=== PATIENT | male | born 1965 | race Caucasian/White ===

== ENCOUNTER 2017-06-16 09:09 | Inpatient (IN) | payer BC, OTHER ==
[~2017-06-16] VITALS: Ht 182.9 cm; Wt 108.0 kg
--- NOTE | 2017-06-17 09:30 | NUR ---
INTAKE ASSESSMENT Received patient Aox4. Patient is ambulatory and in stable condition. Vital signs stable. Pt reports allergy to alcohol swabs. Patient reports no seizure history. Explained unit protocols and policies. Patient verbalized understanding. Will admit patient upon arrival to third floor.
--- NOTE | 2017-06-17 10:00 | NUR ---
ADMISSION NOTE VITAL SIGNS- BP 164/92 HR 78 O2 97% RR 16 TEMP 98.6 PAIN 3/10 HEIGHT 6'0 WEIGHT 238 ALLERGIES- ALCOHOL SWAB Patient is a 51 year old male admitted to [facility] on 06/17/17 at 0945. Patient is under the care of Dr. Ledesma for opiate and benzo dependence. Patient denies S/I or H/I at this time. Patient denies being hospitalized within the last 30 days. Patient denies chest pain or SOB. Upon assessment, patient's skin is intact. COWS 8 CIWA 8 upon admission. AOx4 and able to answer necessary questions for admission process. Patient is full code and regular diet. Patient denies seizure history. Patient denies having PCP. breathing is even and unlabored. Patient ambulates with steady gait. patient reports treatment in 2002 with 11 year of sobriety after. Patient reports living alone. Hx anxiety depression, ulcerative colitis. Patient does not smoke cigarettes. Dr. Ledesma has been notified and places client under observation. All needs have been met. Patient has been oriented to room, staff, and unit. All safety measures in place per hospital policy. Bed in lowest position and locked. Call light within reach. Will monitor. Substance Abuse- Oxycodone- 240 mg daily for 1 year, last used 20 mg 06/17/17 Ativan- 5 mg daily for 7 years, last used 0.5 mg 06/17/17
[2017-06-17] MEDS ORDERED: BUPRENORPHINE HCL 2 MG TAB.SUBL SL PRN (10:15)
[2017-06-17] MEDS ORDERED: ONDANSETRON ODT 4 MG TAB.RAPDIS SL PRN (10:15)
[2017-06-17] MEDS ORDERED: ONDANSETRON 4 MG/2 ML VIAL IM PRN (10:15)
[2017-06-17] MEDS ORDERED: LOPERAMIDE HCL 2 MG CAPSULE PO PRN ×2 (10:15)
[2017-06-17] MEDS ORDERED: LORAZEPAM 2 MG/1 ML VIAL IM PRN (10:15)
[2017-06-17] MEDS ORDERED: LORAZEPAM 1 MG TABLET PO PRN ×2 (10:15)
[2017-06-17] MEDS ORDERED: DICYCLOMINE HCL 20 MG TABLET PO PRN (10:15)
[2017-06-17] MEDS ORDERED: MIRALAX 17 GM POWD.PACK PO PRN (10:15)
[2017-06-17] MEDS ORDERED: MAG HYDROX/AL HYDROX/SIMETH 30 ML LIQUID UDC PO PRN (10:15)
[2017-06-17] MEDS ORDERED: CYCL5TAB PO (10:30)
[2017-06-17] MEDS ORDERED: FLUO40CA49 PO (10:30)
[2017-06-17] MEDS ORDERED: BENA20TA2 PO (10:30)
[2017-06-17] MEDS ORDERED: CLON0.1T PO (10:30)
[2017-06-17] MEDS ORDERED: LIDO1.8C IJ (10:30)
--- NOTE | 2017-06-17 10:45 | NUR ---
PRN MEDICATIONS 4 MG SUBUTEX GIVEN FOR COWS 12. 1 MG ATIVAN GIVEN FOR CIWA 8. WILL REASSESS
--- NOTE | 2017-06-17 11:45 | NUR ---
PRN REASSESSMENT COWS DECREASED TO 9. CIWA 9. WILL MONITOR.
[2017-06-17 12:00] VITALS: BP 140/85
[2017-06-17 12:01] LABS: *AMPHETAMINE, URINE NEGATIVE (NEGATIVE); *BARBITURATE, URINE NEGATIVE (NEGATIVE); *CANNABINOID, URINE NEGATIVE (NEGATIVE); *COCCAINE, URINE NEGATIVE (NEGATIVE); *OPIATE, URINE POSITIVE (NEGATIVE); *PHENCYCLIDINE SCREEN,URINE NEGATIVE (NEGATIVE)
[2017-06-17 12:49] LABS: ETHANOL < 3 MG/DL (0-0)
[2017-06-17 12:51] LABS: BASOPHILS % (AUTO) 0.2 % (0.0-2.0); EOSINOPHILS # (AUTO) 0.1 K/uL (0.0-0.7); HEMOGLOBIN 13.1 G/DL (14.0-18.0); LYMPHOCYTES # (AUTO) 0.6 K/UL (0.8-4.8); LYMPHOCYTES % (AUTO) 9.9 % (20.5-51.5); MEAN CORPUSCULAR HEMOGLOBIN 25.4 UUG (27.0-31.0); MEAN CORPUSCULAR HGB CONC 33 g/dL (32.0-37.0); MEAN CORPUSCULAR VOLUME 77.6 FL (82.0-92.0); MONOCYTES # (AUTO) 0.5 K/UL (0.1-1.30); MONOCYTES % (AUTO) 7.4 % (0.0-11.0); NEUTROPHILS # (AUTO) 5.1 K/UL (1.8-8.9); NEUTROPHILS % (AUTO) 80.5 % (38.5-71.5); PLATELET COUNT (AUTO) 318 K/UL (150-450); RED BLOOD CELL COUNT(AUTO) 5.16 MIL/UL (4.7-6.1); WHITE BLOOD COUNT (AUTO) 6.3 K/UL (4.0-11.2)
[2017-06-17 12:52] LABS: ALANINE AMINOTRANSFERASE 56 U/L (16-63); ALKALINE PHOSPHATASE 92 U/L (50-136); ASPARTATE AMINOTRANSFERASE 35 U/L (15-37); BILIRUBIN,TOTAL 0.4 mg/dL (0.2-1.0); CARBON DIOXIDE 30 mmol/L (21-32); CHLORIDE 104 mmol/L (98-107); CREATININE 1.1 mg/dL (0.6-1.3); GLUCOSE 105 mg/dL (74-106); MAGNESIUM 2.1 mg/dL (1.8-2.4); POTASSIUM 3.9 mmol/L (3.5-5.1); TOTAL PROTEIN, SERUM 7.6 g/dL (6.4-8.2); UREA NITROGEN, BLOOD 13 mg/dL (7-18)
[2017-06-17] MEDS: BUPRENORPHINE HCL 2 MG TAB.SUBL SL SCH ×2 (14:29→20:56)
[2017-06-17 16:00] VITALS: BP 126/74
[2017-06-17] MEDS: LORAZEPAM 1 MG TABLET PO SCH ×2 (16:50→20:56)
[2017-06-17] MEDS: IBUPROFEN 600 MG TABLET PO PRN (16:54)
--- NOTE | 2017-06-17 16:56 | NUR ---
PRN MEDICATION MOTRIN GIVEN FOR HEADACHE 9/10 ON PAIN SCALE
--- NOTE | 2017-06-17 17:51 | NUR ---
PRN REASSESSMENT PATIENT SLEEPING IN BED WITH RR EVEN AND UNLABORED. NO DISTRESS NOTED. CALL [place] WITHIN REACH AND BED IN LOWEST POSITION
--- NOTE | 2017-06-17 18:46 | NUR ---
END OF SHIFT NOTE ADMITTED PATIENT THIS SHIFT. PATIENT ADMITTED FOR OXYCODONE AND ATIVAN DEPENDENCE. PATIENT STARTED ON 5 DAY ATIVAN TAPER THIS SHIFT AND IS TO START 4 DAY SUBUTEX TAPER TOMORROW 06/18. PATIENT GIVEN PRN ATIVAN, SUBUTEX, MOTRIN DURING SHIFT WITH EFFECTIVENESS. PATIENT HAS BEEN SLEEPING IN BED SINCE ADMISSION. HE REPORTED ANXIETY AND NERVOUSNESS. LAST COWS 9 CIWA 9. ALL SAFETY MEASURES ARE IN PLACE. ALL NEEDS HAVE BEEN MET. WILL ENDORSE TO IT COORDINATOR.
[2017-06-17 20:00] VITALS: BP 141/82
--- NOTE | 2017-06-17 20:00 | NUR ---
START OF SHIFT NOTE PATIENT IN ROOM, RESTING. UPON GREETING, PATIENT STATES HE'S ANXIOUS, SWEATING, C/O HEADACHE 02/12, NOTED PILOERECTION OF SKIN, FINE TREMORS AND YAWNING. RECEIVED REPORT FROM DAY SHIFT NURSE. PATIENT IS A 51 YEAR OLD MALE, ADMITTED FOR OPIOID AND ATIVAN DEPENDENCE. PATIENT IS ON 5 DAY ATIVAN AND 4 DAY SUBUTEX TAPER. UPON ADMISSION, PATIENT REPORTS USING OXYCODONE 240 MG FOR A YEAR AND ATIVAN 5 MG FOR 7 YEARS. PATIENT REPORTS PMH OF ANXIETY , DEPRESSION AND ULCERATIVE COLITIS. NO SEIZURE HISTORY. PATIENT WAS GIVEN PRN SUBUTEX , ATIVAN AND MOTRIN . LAST COWS 9 AND CIWA 9. SKIN INTACT. PATIENT IS ON FALL PRECAUTION. SAFETY MEASURES IN PLACE. CALL LIGHT IN REACH. WILL CONTINUE TO MONITOR
[2017-06-17] MEDS: ACETAMINOPHEN 325 MG TABLET PO PRN (20:56)
--- NOTE | 2017-06-17 20:56 | NUR ---
PRN TYLENOL ADMINISTRATION PATIENT C/O HEADACHE 02/12 .PRN TYLENOL GIVEN. WILL MONITOR FOR EFFECTIVENESS
--- NOTE | 2017-06-17 21:56 | NUR ---
PRN TYLENOL RE-ASSESSMENT PATIENT STATES TYLENOL HELPFUL. PAIN LEVEL 2/10 AT THIS TIME. WILL CONTINUE TO MONITOR
[2017-06-18] VITALS: BP 135/84
[2017-06-18] MEDS: IBUPROFEN 600 MG TABLET PO PRN ×2 (00:58→10:57)
[2017-06-18] MEDS: diphenhydrAMINE 50 MG CAPSULE PO PRN (00:58)
--- NOTE | 2017-06-18 00:58 | NUR ---
PRN MOTRIN AND BENADRYL ADMINISTRATION PATIENT C/O HEADACHE 02/12 AND REQUESTS FOR SLEEP AID. PRN MOTRIN AND BENADRYL GIVEN. WILL MONITOR FOR EFFECTIVENESS
--- NOTE | 2017-06-18 01:58 | NUR ---
MISSAELN SALLIE AND NAHOMI PATIENT ASLEEP AT THIS TIME. NO FACIAL GRIMACING. WILL CONTINUE TO MONITOR
--- NOTE | 2017-06-18 04:00 | NUR ---
COWS/CIWA/VS PATIENT ASLEEP AT TIME TIME. COWS/CIWA UNABLE TO ASSESS. RESPIRATION EVEN AND UNLABORED. WILL CONTINUE TO MONITOR.
--- NOTE | 2017-06-18 07:11 | NUR ---
END OF SHIFT NOTE MONITORED PATIENT THROUGHOUT SHIFT. PATIENT IS A 51 YEAR OLD MALE, ADMITTED FOR OPIOID AND ATIVAN DEPENDENCE. PATIENT IS ON 5 DAY ATIVAN AND 4 DAY SUBUTEX TAPER. UPON ADMISSION, PATIENT REPORTS USING OXYCODONE 240 MG FOR A YEAR AND ATIVAN 5 MG FOR 7 YEARS. PATIENT REPORTS PMH OF ANXIETY , DEPRESSION AND ULCERATIVE COLITIS. NO SEIZURE HISTORY. PATIENT WAS GIVEN PRN MOTRIN , TYLENOL AND BENADRYL. SKIN INTACT. PATIENT IS ON FALL PRECAUTION. SAFETY MEASURES IN PLACE. CALL LIGHT IN REACH. WILL CONTINUE TO MONITOR . SLEPT 9 HOURS. FLUID INTAKE 855 ML. VOIDED X 2. BM X 1.
[2017-06-18 08:00] VITALS: BP 149/77
--- NOTE | 2017-06-18 08:00 | NUR ---
START OF SHIFT NOTE Received report from night nurse, 51 year old male admitted for Opioid/ Ativan dependance. Pt cont with Subutex/Ativan taper. Per night nurse pt received PRN Tylenol/Motrin/Benadryl noted to be effective, Last COWS-4, CIWA-4, Slept for 9 hours. Received pt alert awake oriented x4 in stable condition. Breathing normal no SOB noted, Skin warm and dry to touch. Pt educated with plan of the day and medication regimen with good verbal understanding. All safety measures in place, Call light within reach. Will cont to monitor.
[2017-06-18] MEDS ORDERED: TUBERCULIN,PURIF.PROT.DERIV. 5 TU/0.1 ML TEST ID ONE (09:00)
[2017-06-18] MEDS: LORAZEPAM 1 MG TABLET PO SCH ×4 (09:07→21:55)
[2017-06-18] MEDS: MULTIVITAMINS,THERAPEUTIC TABLET PO SCH (09:07)
[2017-06-18] MEDS: BUPRENORPHINE HCL 2 MG TAB.SUBL SL SCH ×3 (09:08→21:55)
[2017-06-18] MEDS: PATIENT MAY USE OWN MED- MD OK PO SCH (09:09)
[2017-06-18 10:11] LABS: HEPATITIS B SURFACE AG Negative (Negative)
--- NOTE | 2017-06-18 10:57 | NUR ---
PRN MOTRIN Pt c/o of headache 02/12. Pt medicated with PRN Motrin 600mg Po as ordered. Will cont to monitor and reassess.
--- NOTE | 2017-06-18 11:57 | NUR ---
REASSESSMENT upon reassessment pt reported medication effective headache decreased to 1/10. Will cont to monitor.
[2017-06-18 12:00] VITALS: BP 135/68
[2017-06-18] MEDS: FLUOXETINE HCL 20 MG CAPSULE PO SCH (12:09)
[2017-06-18] MEDS: GABAPENTIN 300 MG CAPSULE PO SCH ×2 (14:08→21:55)
[2017-06-18] MEDS: BACLOFEN 10 MG TABLET PO SCH ×2 (14:08→21:55)
[2017-06-18 16:00] VITALS: BP 127/75
[2017-06-18] MEDS: CLONIDINE HCL 0.1 MG TABLET PO PRN (16:11)
--- NOTE | 2017-06-18 16:11 | NUR ---
PRN CLONIDINE Pt reported chills, sweats. PRN Clonidine 0.1mg Po administered as ordered. Will cont to monitor and reassess.
--- NOTE | 2017-06-18 17:11 | NUR ---
REASSESSMENT Upon reassessment pt reported medication effective Chills and sweats subside.
--- NOTE | 2017-06-18 19:19 | NUR ---
END OF SHIFT NOTE Pt cont with Subutex and Ativan taper tolerated well. During shift pt presented with headache/Chills, sweats. Pt given PRN Clonidine/Motrin. Last CIWA-4, COWS-4. Vital signs remained WNL. Pt able to consumed all his meals well. Encourage Po fluids as tolerated. Pt remained compliant with plan of care. Pt rested in bed most of shift and isolated self from peers. He did not attend groups and activities. All needs attended. Safety measures in place, Call light within reach. Pt endorsed to night nurse in stable condition.
[2017-06-18 20:00] VITALS: BP 133/78
--- NOTE | 2017-06-18 20:00 | NUR ---
Start of Shift Patient is a 51-year old, male, admitted for Opioid/Ativan dependence. Patient placed on 5-day Ativan taper-started on 06/17/17 and 4-day Subutex taper-started on 06/18/17, both tapers tolerated well. Pt reports allergy to alcohol swab, is Full Code and on Regular Diet. Pt is AAOx4 and with slight anxiety noted. No SOB observed. Pt is ambulatory with steady gait. No skin issues. Pt is stable. Fall, universal and safety prec in place. Call light within reach. Latest COWS=3, CIWA=3. Will continue to monitor.
[2017-06-19] VITALS: BP 130/71
[2017-06-19 04:00] VITALS: BP 133/72
[2017-06-19] MEDS: METHOCARBAMOL 750 MG TABLET PO PRN (05:52)
--- NOTE | 2017-06-19 05:54 | NUR ---
RN note PRN Robaxin Pt c/o generalized muscle pain, more focused on the lower back=08/14 per pt. Administered Robaxin 750 mg PO. Will reassess.
--- NOTE | 2017-06-19 07:00 | NUR ---
RN note reassess Pt verbalized pain level decreased to 4-5/10. Will continue to monitor.
--- NOTE | 2017-06-19 07:21 | NUR ---
End of Shift Patient is a 51-year old, male, admitted for Opioid/Ativan dependence. Patient placed on 5-day Ativan taper-started on 06/17/17 and 4-day Subutex taper-started on 06/18/17, both tapers tolerated well. Pt reports allergy to alcohol swab, is Full Code and on Regular Diet. Pt is AAOx4 and with slight anxiety noted. No SOB observed. Pt is ambulatory with steady gait. No skin issues. Pt is stable. Fall, universal and safety prec in place. Call light within reach. Latest COWS=2, CIWA=3, slept for 7 hours . No suicidal ideation nor homicidal ideation. Endorsed to AM shift nurse for continuity of care.
[2017-06-19 08:00] VITALS: BP 156/83
--- NOTE | 2017-06-19 08:06 | NUR ---
START OF SHIFT NOTE Received report from night nurse, 51 year old male admitted for Opioid/ Ativan dependance. Pt cont with Subutex/Ativan taper. Per night nurse pt received PRN Robaxin noted to be effective, Last COWS-4, CIWA-4, Slept for 7 hours. Received pt alert awake oriented x4 in stable condition. Breathing normal no SOB noted, Skin warm and dry to touch. Pt educated with plan of the day and medication regimen with good verbal understanding. All safety measures in place, Call light within reach. Will cont to monitor.
[2017-06-19] MEDS: BACLOFEN 10 MG TABLET PO SCH (08:57)
[2017-06-19] MEDS: FLUOXETINE HCL 20 MG CAPSULE PO SCH (08:57)
[2017-06-19] MEDS: MULTIVITAMINS,THERAPEUTIC TABLET PO SCH (08:57)
[2017-06-19] MEDS: GABAPENTIN 300 MG CAPSULE PO SCH ×3 (08:57→20:06)
[2017-06-19] MEDS: LORAZEPAM 1 MG TABLET PO SCH ×3 (08:58→20:05)
[2017-06-19] MEDS ORDERED: BUPRENORPHINE HCL 2 MG TAB.SUBL SL SCH (09:00)
[2017-06-19] MEDS: PATIENT MAY USE OWN MED- MD OK PO SCH (09:02)
[2017-06-19] MEDS ORDERED: METHYL SALICYLATE/MENTHOL CREAM 28 GM TUBE TOP PRN (11:45)
[2017-06-19 12:00] VITALS: BP 119/65
[2017-06-19] MEDS: KETOROLAC TROMETHAMINE 30 MG INJ IM PRN (13:11)
--- NOTE | 2017-06-19 13:11 | NUR ---
PRN TORADOL Pt c/o of lower back pain 06/14. Pt provided with non pharmacological intervention with no relief. Administered PRN Toradol 30mg IM as ordered. Will cont to monitor and reassess.
--- NOTE | 2017-06-19 13:41 | NUR ---
REASSESSMENT Pt reported medication effective pain level decreased to 2/10.
[2017-06-19] MEDS: BUPRENORPHINE HCL 2 MG TAB.SUBL SL SCH ×2 (14:58→20:05)
[2017-06-19] MEDS: BACLOFEN 20 MG TABLET PO SCH ×2 (14:58→20:06)
[2017-06-19] MEDS ORDERED: BACLOFEN 10 MG TABLET PO SCH (15:00)
[2017-06-19 16:00] VITALS: BP 121/60
--- NOTE | 2017-06-19 19:09 | NUR ---
START OF SHIFT NOTE: Patient endorsed by day shift nurse in stable condition. Report received. Patient is a 51 year old male admitted to [facility] on 06/17/2017 for medically supervised withdrawal from Oxycodone and Ativan, continue 5 Day Ativan Taper and 4 Day Subutex Taper with tolerated well without ASE. Patient remained compliant with treatment, medications and diet regime. Patient reports Alcohol Swabs. Patient is on Full Code, Regular Diet, Fall and Seizures Precautions. Upon endorsement, patient is in the room. Assessment done. Patient is alert and oriented x4. Speech is clear and soft. COWS 7, CIWA 7. Patient presented with mild anxiety, agitation, nervousness, diaphoresis, restlessness, body aches, insomnia ,fatigue, and yawning. Patient denies SI/HI. Respirations unlabored and even. Patient denies SOB and chest pain. Lungs Sounds are clear bilaterally. Bowel Sounds active in all x4 quadrants. PERRLA, brisk capillary refill, honeycomb decapper equal and strong. Skin is intact, warm and dry to touch. Encourage fluids as tolerated. Encourage to attend activities groups. All needs met. Safety measures on place. Call light within reach, bed in lowest position and locked, padded rails up bilaterally rails up bilaterally. Will continue to monitor closely. Addendum: 06/20/17 at 0245 by HIPOLITO TEMPLE RN Patient reports Allergy to Alcohol Swabs.
--- NOTE | 2017-06-19 19:09 | NUR ---
END OF SHIFT NOTE Pt is alert oriented x4.Pt cont with Subutex and Ativan taper tolerated well. During shift pt presented with lower back pain 8/10. Pt given PRN Toradol 30mg Im administered noted to be effective pain decreased to 2/10. Last CIWA-3, COWS-3. Vital signs remained WNL. Pt able to consumed all his meals well. Encourage Po fluids as tolerated. Pt remained compliant with plan of care. Pt rested in bed most of shift and isolated self from peers. He did not attend groups and activities. All needs attended. Safety measures in place, Call light within reach. Pt endorsed to night nurse in stable condition.
[2017-06-19 20:00] VITALS: BP 158/93
[2017-06-19] MEDS: CLONIDINE HCL 0.1 MG TABLET PO PRN (20:05)
--- NOTE | 2017-06-19 20:05 | NUR ---
PRN CLONIDINE 0.1 MG 1 TAB PO ADMINISTRATION. PRN Clonidine 0.1 mg 1 tab PO administrated for BP 158/99 with full glass of water as ordered. Patient tolerated well. All needs met. Safety measures on place. Call light within reach, bed in lowest position and locked, padded rails up bilaterally rails up bilaterally. Will continue to monitor closely.
--- NOTE | 2017-06-19 21:05 | NUR ---
RE-ASSESSMENT Patient BP 139/78. PRN Clonidine PO was effective. All needs met. Safety measures on place. Call light within reach, bed in lowest position and locked, padded rails up bilaterally rails up bilaterally. Will continue to monitor closely.
[2017-06-20] VITALS: BP 137/75
[2017-06-20] MEDS: diphenhydrAMINE 50 MG CAPSULE PO PRN (00:14)
--- NOTE | 2017-06-20 00:14 | NUR ---
PRN BENADRYL 50 MG 1 CAP PO ADMINISTRATION. Patient c/o insomnia and asked aid. Patient was assessed. VS WNL. Patient denies SI/HI. PRN Benadryl PO discussed with patient, and patient's educated for actions, side effects, and adverse reactions of Benadryl. Patient returned knowledge back by verbalized understanding. PRN Benadryl 50 mg 1 cap PO administrated with full glass of water as ordered. Patient tolerated well. All needs met. Safety measures on place. Call light within reach, bed in lowest position and locked, padded rails up bilaterally rails up bilaterally. Will continue to monitor closely.
--- NOTE | 2017-06-20 01:14 | NUR ---
RE-ASSESSMENT Patient is sleeping. Respirations even and unlabored. RR: 15. PRN Benadryl PO were effective. All needs met. Safety measures on place. Call light within reach, bed in lowest position and locked, padded rails up bilaterally rails up bilaterally. Will continue to monitor closely.
[2017-06-20 04:00] VITALS: BP 137/69
--- NOTE | 2017-06-20 06:59 | NUR ---
END OF SHIFT NOTE: Patient endorsed to day shift nurse in stable condition. Report given. Patient is a 51 year old male admitted to [facility] on 06/17/2017 for medically supervised withdrawal from Oxycodone and Ativan, continue 5 Day Ativan Taper and 4 Day Subutex Taper with tolerated well without ASE. Patient remained compliant with treatment, medications and diet regime. Patient reports Allergy to Alcohol Swabs. Patient is on Full Code, Regular Diet, Fall and Seizures Precautions. Patient denies Seizures History. Last COWS 6 at 0400, CIWA 4 at 0400. Patient presented with mild anxiety, agitation, nervousness, diaphoresis, restlessness, body aches, insomnia ,fatigue, and yawning. Patient denies SI/HI. Respirations unlabored and even. Patient denies SOB and chest pain. Skin is intact, warm and dry to touch. PRN Benadryl 50 mg 1 cap PO for insomnia, and PRN Vistaril 50 mg 2 cap PO for anxiety administrated as ordered, and were effective. Patient slept 7 hours 45 minutes,, intake 355 ml, voided x1. Encourage fluids as tolerated. Encourage to attend activities groups. All needs met. Safety measures on place. Call light within reach, bed in lowest position and locked, padded rails up bilaterally.
[2017-06-20 08:40] VITALS: BP 109/56
[2017-06-20] MEDS ORDERED: LORAZEPAM 1 MG TABLET PO SCH (09:00)
[2017-06-20] MEDS: PATIENT MAY USE OWN MED- MD OK PO SCH (09:00)
[2017-06-20] MEDS: LORAZEPAM 1 MG TABLET PO SCH ×2 (09:54→20:52)
[2017-06-20] MEDS: BACLOFEN 20 MG TABLET PO SCH ×3 (09:54→20:52)
[2017-06-20] MEDS: MULTIVITAMINS,THERAPEUTIC TABLET PO SCH (09:54)
[2017-06-20] MEDS: GABAPENTIN 300 MG CAPSULE PO SCH ×3 (09:54→20:53)
[2017-06-20] MEDS: BUPRENORPHINE HCL 2 MG TAB.SUBL SL SCH ×3 (09:55→20:52)
[2017-06-20] MEDS: FLUOXETINE HCL 20 MG CAPSULE PO SCH (11:25)
[2017-06-20 12:46] VITALS: BP 142/75
[2017-06-20 17:18] VITALS: BP 129/86
--- NOTE | 2017-06-20 18:54 | NUR ---
End of Shift Field Supervisor [employer] provided report on 51 year old male admitted on 06/17/17 for Oxycodone and Ativan detoxification, with no further comments, questions or concerns voiced. Pt has NKA, is a full code and eats a regular diet. Pt reports PMH of anxiety, depression, and ulcerative colitis. Pt currently on a 5 day Ativan and 5 day Subutex taper. Pt has a depressed mood with flat affect, calm and cooperative and able to make needs known. Pt has been somnolent all day and has been isolating in room and to self. Pt is experiencing moderate withdrawal symptoms, but has been able to rest thru most of the discomfort. Bed in low position, with wheels locked, side rails up x2 and call light within reach.
[2017-06-20 20:00] VITALS: BP 132/79
--- NOTE | 2017-06-20 20:00 | NUR ---
START OF SHIFT NOTE PATIENT ALERT AND ORIENTED X 4. RESPIRATION EVEN AND UNLABORED. PATIENT REPORTS ANXIETY, NO N/V, SWEATING, BETTER APPETITE, DID NOT ATTENDED GROUPS , WILL TRY TOMORROW HE STATES, BOWEL MOVEMENT LOOSE (HISTORY OF ULCERATIVE COLITIS), REFUSED IMODIUM. ENCOURAGED FLUIDS. PATIENT C/O BACK PAIN 06/14. RECEIVED REPORT FROM DAY SHIFT NURSE. PATIENT IS A 51 YEAR OLD MALE ADMITTED FOR SUBSTANCE DEPENDENCE. PATIENT IS ON 5 DAY ATIVAN AND 4 DAY SUBUTEX TAPER. PATIENT IS ALLERGIC TO ALCOHOL SWABS. PATIENT REPORTS PMH OF ANXIETY, DEPRESSION AND ULCERATIVE COLITIS. PATIENT S DRUG OF CHOICE ARE OXYCODONE AND ATIVAN. PATIENT DID NOT REQUIRE PRN MEDICATION. LAST COWS 6 AD CIWA 4. ON FALL/SEIZURE PRECAUTION. SAFETY MEASURES IN PLACE. CALL LIGHT IN REACH. WILL CONTINUE TO MONITOR.
[2017-06-20] MEDS: METHOCARBAMOL 750 MG TABLET PO PRN (20:52)
--- NOTE | 2017-06-20 20:52 | NUR ---
PRN ROBAXIN ADMINISTRATION PATIENT C/O BACK PAIN 06/14. PRN ROBAXIN GIVEN. WILL MONITOR FOR EFFECTIVENESS
--- NOTE | 2017-06-20 21:52 | NUR ---
PRN ROBAXIN RE-ASSESSMENT PATIENT STATES ROBAXIN IS HELPFUL. PAIN LEVEL 3/10, TOLERABLE . WILL CONTINUE TO MONITOR
[2017-06-21] VITALS (7 sets, daily range): BP systolic 133–147; BP diastolic 73–90
[2017-06-21] MEDS: METHOCARBAMOL 750 MG TABLET PO PRN ×2 (05:02→17:05)
--- NOTE | 2017-06-21 05:02 | NUR ---
PRN ROBAXIN ADMINISTRATION PATIENT C/O GENERALIZED BODY ACHES 04/14. PRN ROBAXIN GIVEN. WILL CONTINUE TO MONITOR
--- NOTE | 2017-06-21 06:02 | NUR ---
HARDEEP JASSO RE-ASSESSMENT PATIENT IN BED WITH EYES CLOSED. NO FACIAL GRIMACING. RESPIRATION EVEN AND UNLABORED. WILL CONTINUE TO MONITOR
--- NOTE | 2017-06-21 07:32 | NUR ---
END OF SHIFT NOTE PATIENT REMAIN ALERT AND ORIENTED X 4. RESPIRATION EVEN AND UNLABORED. PATIENT REPORTED ANXIETY, NO N/V, SWEATING, BETTER APPETITE, DID NOT ATTENDED GROUPS , WILL TRY TOMORROW HE STATES, BOWEL MOVEMENT LOOSE (HISTORY OF ULCERATIVE COLITIS), REFUSED IMODIUM. ENCOURAGED FLUIDS. PATIENT C/O BACK PAIN 06/14. RECEIVED REPORT FROM DAY SHIFT NURSE. PATIENT IS A 51 YEAR OLD MALE ADMITTED FOR SUBSTANCE DEPENDENCE. PATIENT IS ON 5 DAY ATIVAN AND 4 DAY SUBUTEX TAPER, TOLERATED WELL. NO ADVERSE REACTION . PATIENT IS ALLERGIC TO ALCOHOL SWABS. PATIENT REPORTS PMH OF ANXIETY, DEPRESSION AND ULCERATIVE COLITIS. PATIENT S DRUG OF CHOICE ARE OXYCODONE AND ATIVAN. PATIENT WAS GIVEN PRN MOTRIN X 2. . ON FALL/SEIZURE PRECAUTION. SAFETY MEASURES IN PLACE. CALL LIGHT IN REACH. WILL CONTINUE TO MONITOR. SLEPT 2 HOURS. FLUID INTAKE 550 ML. VOIDED X 2 . NO BM. LAST COWS 4 AND CIWA 3 .
--- NOTE | 2017-06-21 07:35 | NUR ---
Start Of Shift Patient Received from retail shift manager nurse. Patient is a 51 year old male admitted on 06/17/17 for Oxycodone and Ativan withdrawals/dependence pt is under the care of Dr. Ledesma. Pt is full code regular diet on fall and seizure precautions reports allergies to alcohol swabs. Patient is currently receiving a 5 day Ativan and a 4 day Subutex taper tolerating well. Pt reports PMH of anxiety, depression, and ulcerative colitis. Treatment plan tolerated well by the patient as evidenced by pts last CIWA score of 3 and COWS score of 4 which was taken at 0400. Pt received PRN Robaxin x2 last night for which was effective per retail shift manager nurse. Fluids encouraged to facilitate the detox process. Pt is currently in his room laying in bed watching TV. All safety measures in place per hospital policy. Bed in lowest position, side rails up x2, call-light within reach. Will continue to monitor and provide support.
[2017-06-21] MEDS ORDERED: LORAZEPAM 1 MG TABLET PO SCH ×2 (09:00)
[2017-06-21] MEDS: PATIENT MAY USE OWN MED- MD OK PO SCH ×2 (09:00→09:32)
[2017-06-21] MEDS ORDERED: BUPRENORPHINE HCL 2 MG TAB.SUBL SL SCH ×2 (09:00)
[2017-06-21] MEDS: FLUOXETINE HCL 20 MG CAPSULE PO SCH (09:22)
[2017-06-21] MEDS: GABAPENTIN 300 MG CAPSULE PO SCH ×2 (09:22→21:10)
[2017-06-21] MEDS: MULTIVITAMINS,THERAPEUTIC TABLET PO SCH (09:23)
[2017-06-21] MEDS: BACLOFEN 20 MG TABLET PO SCH ×2 (09:23→21:10)
[2017-06-21] MEDS ORDERED: NAPROXEN 500 MG TABLET PO PRN (15:00)
[2017-06-21] MEDS: LIDOCAINE 5% PATCH TD SCH (15:10)
[2017-06-21] MEDS: CLONIDINE HCL 0.1 MG TABLET PO PRN (17:05)
--- NOTE | 2017-06-21 17:15 | NUR ---
PRN MEDICATION Pt c/o Anxiety presented with agitation and restlessness pt also complained of generalized pain rating it 5/10 requested something for relief, non-pharmacological techniques interventions provided x3 and were not effective. PRN Clonidine 0.1mg Naproxen 500mg, and Robaxin 750mg administered PO, educated pt about s/e of medication and when to contact nurse. all needs met, all safety measures in place, will continue to monitor.
--- NOTE | 2017-06-21 18:15 | NUR ---
PRN REASSESSMENT Medication effective pt reported a decrease in pain to 1/10 and verbalized a decrease in anxiety stating "I feel much better now the medication really helped, thanks" will continue to monitor
--- NOTE | 2017-06-21 18:52 | NUR ---
End Of Shift Report given to overnight houseperson, Patient is a 51 year old male admitted on 06/17/17 for Oxycodone and Ativan withdrawals/dependence pt is under the care of Dr. Ledesma. Pt is full code regular diet on fall and seizure precautions reports allergies to alcohol swabs. Patient continues receiving 5 day Ativan and 4 day Subutex taper tolerating well. VS monitored closely q 4 hours. Withdrawal symptoms were closely monitored. Initial COWS 5 CIWA 4. Patient encouraged adequate PO fluid intake as tolerated. Patient presented with tremors and anxiety during the day. Last COWS 4 CIWA 5. Per patient, Subutex and Ativan have been helping him with his withdrawal symptoms. Pt ate all of his meals. Pt received PRN Naproxen, Robaxin and Clonidine during day shift, all medications effective. Patient encouraged to attend group therapies/sessions to learn new coping skills to recent relapse, patient denies SI/HI. Participated in group and therapy sessions. All needs met and attended
--- NOTE | 2017-06-21 20:00 | NUR ---
START OF SHIFT NOTE RECEIVED REPORT FROM DAY SHIFT NURSE. PATIENT IS A 51 YEAR OLD MALE ADMITTED FOR OPIOID AND BENZO DEPENDENCE. PATIENT COMPLETED ATIVAN AND SUBUTEX TAPER. PATIENT IS MEDICALLY CLEARED TO BE DISCHARGE TOMORROW. PATIENT WAS GIVEN PRN NAPROXEN, CLONIDINE AND ROBAXIN. LAST COWS 4 AND CIWA 5. ON FALL PRECAUTION. SAFETY MEASURES IN PLACE. CALL LIGHT IN REACH. WILL CONTINUE TO MONITOR.
[2017-06-21] MEDS ORDERED: GABAPENTIN 300 MG CAPSULE PO SCH (21:00)
[2017-06-21] MEDS: CLONIDINE HCL 0.1 MG TABLET PO SCH (21:10)
[2017-06-21] MEDS: diphenhydrAMINE 50 MG CAPSULE PO PRN (21:10)
--- NOTE | 2017-06-21 21:10 | NUR ---
PRN BENADRYL ADMINISTRATION PATIENT REQUESTS FOR SLEEP AID. PRN BENADRYL GIVEN. WILL MONITOR FOR EFFECTIVENESS
[2017-06-21] MEDS: NAPROXEN 500 MG TABLET PO SCH (21:11)
[2017-06-21] MEDS ORDERED: BACL20TA PO (21:49)
[2017-06-21] MEDS ORDERED: LIDO30AD10 TD (21:49)
[2017-06-21] MEDS ORDERED: CLON0.1T14 PO (21:49)
[2017-06-21] MEDS ORDERED: DICY20TA28 PO (21:49)
[2017-06-21] MEDS ORDERED: GABA-534 PO ×2 (21:49)
[2017-06-21] MEDS ORDERED: DIPH50CA37 PO (21:49)
[2017-06-21] MEDS ORDERED: FLUO-120 PO (21:49)
[2017-06-21] MEDS ORDERED: NAPR500T3 PO (21:49)
[2017-06-22] VITALS (7 sets, daily range): BP systolic 118–156; BP diastolic 66–92
--- NOTE | 2017-06-22 07:06 | NUR ---
END OF SHIFT NOTE PATIENT IS A 51 YEAR OLD MALE ADMITTED FOR OPIOID AND BENZO DEPENDENCE. PATIENT COMPLETED ATIVAN AND SUBUTEX TAPER. PATIENT IS MEDICALLY CLEARED TO BE DISCHARGE TODAY . PATIENT WAS EMOTIONAL BEGINNING OF SHIFT REGARDING HIS DISCHARGE. PATIENT WAS GIVEN POSITIVE ENCOURAGEMENT AND REDIRECTION PROVIDED. PATIENT WAS GIVEN PRN BENADRYL FOR SLEEP. PATIENT COMPLIANT WITH MEDICATION. ON FALL PRECAUTION. SAFETY MEASURES IN PLACE. CALL LIGHT IN REACH. WILL CONTINUE TO MONITOR. SLEPT 10 HOURS. FLUID INTAKE 600 ML. VOIDED X 1 .NO BM. LAST COWS 1 AND CIWA 1 .
--- NOTE | 2017-06-22 07:30 | NUR ---
START OF SHIFT NOTE RECEIVED PT AOX4. PT SCHEDULED FOR DISCHARGE THIS SHIFT. PT COMPLETED TAPER MEDICATIONS. PRN BENADRYL GIVEN PER NIGHT NURSE. PT SLEPT 10 HOURS. PT STATES READINESS FOR DISCHARGE. VITAL SIGNS STABLE. COWS 1 CIWA 1 PER NIGHT NURSE. WILL DISCHARGE PT THIS SHIFT ORDERED.
[2017-06-22] MEDS: NAPROXEN 500 MG TABLET PO SCH ×2 (08:37→21:00)
[2017-06-22] MEDS: MULTIVITAMINS,THERAPEUTIC TABLET PO SCH (08:37)
[2017-06-22] MEDS: PATIENT MAY USE OWN MED- MD OK PO SCH (08:37)
[2017-06-22] MEDS: LIDOCAINE 5% PATCH TD SCH (08:37)
[2017-06-22] MEDS: GABAPENTIN 300 MG CAPSULE PO SCH ×3 (08:37→21:19)
[2017-06-22] MEDS: FLUOXETINE HCL 20 MG CAPSULE PO SCH (08:37)
[2017-06-22] MEDS: BACLOFEN 20 MG TABLET PO SCH ×3 (08:38→21:00)
[2017-06-22] MEDS: CLONIDINE HCL 0.1 MG TABLET PO SCH ×3 (08:38→21:16)
[2017-06-22] MEDS: ACETAMINOPHEN 325 MG TABLET PO PRN (10:24)
--- NOTE | 2017-06-22 10:24 | NUR ---
PRN MEDICATION TYLENOL GIVEN FOR HEADACHE 07/15 WILL MONITOR
--- NOTE | 2017-06-22 11:15 | NUR ---
PRN REASSESSMENT PATIENT REPORTS NO RELIEF IN SYMPTOMS. PAIN STILL 9/10
--- NOTE | 2017-06-22 11:34 | NUR ---
PRN MEDICATIONS IM TORADOL GIVEN PER DR CASAS. PT REPORTS CONSISTENT PAIN 07/15
[2017-06-22] MEDS: KETOROLAC TROMETHAMINE 30 MG INJ IM PRN (11:35)
[2017-06-22 11:37] LABS: *AMPHETAMINE, URINE NEGATIVE (NEGATIVE); *BARBITURATE, URINE NEGATIVE (NEGATIVE)
[2017-06-22 11:38] LABS: *CANNABINOID, URINE NEGATIVE (NEGATIVE); *COCCAINE, URINE NEGATIVE (NEGATIVE); *OPIATE, URINE NEGATIVE (NEGATIVE); *PHENCYCLIDINE SCREEN,URINE NEGATIVE (NEGATIVE)
--- NOTE | 2017-06-22 12:42 | NUR ---
Patient is no longer discharging this shift. patient is not medically cleared per MD. will monitor closely.
[2017-06-22] MEDS ORDERED: BUPRENORPHINE HCL 2 MG TAB.SUBL SL ONE (13:00)
[2017-06-22] MEDS ORDERED: LORAZEPAM 1 MG TABLET PO ONE (13:00)
--- NOTE | 2017-06-22 13:56 | NUR ---
TRANSFER OF CARE TO ADRIAN LUONG
--- NOTE | 2017-06-22 14:00 | NUR ---
RESUMED CARE Resumed care of client, all pertinent information provided. Pt is resting in bed at this time.
--- NOTE | 2017-06-22 14:22 | NUR ---
TAPER MODIFIED Taper was modified to prevent acute discomfort of withdrawals as followed:Ativan 8/18 - 1 mg PO q6h x 3 doses 8 - 1 mg PO qAM 0900 x 1 dose; monitor CIWA q4h; notify MD if CIWA >8 20 - OFF Subutex: 06/22 - 4 mg SL x 1 now, 2 mg SL q6h x 2 doses 06/23 - 2 mg SL qAM 0900 x 1 dose; monitor COWS q4h; notify MD if COWS >12 20 - OFF
--- NOTE | 2017-06-22 15:00 | NUR ---
REFUSAL OF 1500 MEDS Pt refuses Clonidine, Gabapentin, and Baclofen and states "they don't help me, only Ativan and Subutex help me. I don't want to take any medications that do not help me." Pt education provided on importance of med compliance.
[2017-06-22] MEDS: LORAZEPAM 1 MG TABLET PO SCH ×2 (17:20→21:15)
[2017-06-22] MEDS: BUPRENORPHINE HCL 2 MG TAB.SUBL SL SCH ×2 (17:20→21:16)
--- NOTE | 2017-06-22 19:07 | NUR ---
END OF SHIFT Endorsed to night nurse. 51 year old male patient admitted for opiate and benzo withdrawals. Pt was not medically cleared for discharged and taper was modified. Pt remains complaint with ordered medications to increase safety and comfort. PRN Toradol and Motrin were administered and ineffective per patient. Pt refused 1500 medications. Most recent COWS 7 and CIWA 7. Pt denies N/V/D at this time. Pt encouraged to attend groups. Pt is resting in bed at this time. Safety measures in place, night nurse to continue monitoring.
--- NOTE | 2017-06-22 20:00 | NUR ---
START OF SHIFT NOTE RECEIVED REPORT FROM DAY SHIFT NURSE. PATIENT IS A 51 YEAR OLD MALE ADMITTED FOR OPIOID DEPENDENCE. PATIENT'S ATIVAN AND SUBUTEX TAPER WAS EXTENDED. PATIENT WAS PLACED ON MODIFIED 2 DAYS ATIVAN AND SUBUTEX TAPER. PATIENT IS ALLERGIC TO ALCOHOL SWABS. PATIENT LAST COWS 7 AND CIWA 7. PATIENT REFUSED 1500 CLONIDINE, BACLOFEN AND GABAPENTIN . PRN TORADOL AND MOTRIN GIVEN. PATIENT EMOTIONAL DURING THE DAY. ON FALL PRECAUTION. SAFETY MEASURES IN PLACE. CALL LIGHT IN REACH. WILL CONTINUE TO MONITOR.
--- NOTE | 2017-06-22 21:00 | NUR ---
BACLOFEN/NAPROSYN REFUSED PATIENT REFUSED BACLOFEN AND NAPROSYN REFUSED.PATIENT STATES " I DON'T NEED THAT I'M NOT IN PAIN . EXPLAINED RISKS BENEFITS . WILL CONTINUE TO MONITOR.
[2017-06-23] VITALS: BP 111/56
--- NOTE | 2017-06-23 03:09 | NUR ---
PRN BENADRYL ADMINISTRATION PATIENT REQUESTS FOR SLEEP AID. PRN MEDICATION GIVEN. WILL MONITOR FOR EFFECTIVENESS
[2017-06-23] MEDS ORDERED: diphenhydrAMINE 25 MG CAP PO ONE ×2 (03:13→03:15)
--- NOTE | 2017-06-23 04:09 | NUR ---
HARDEEP COMER RE-ASSESSMENT PATIENT ASLEEP AT THIS TIME. RESPIRATION EVEN AND UNLABORED. WILL CONTINUE TO MONITOR.
--- NOTE | 2017-06-23 07:20 | NUR ---
Start of Shift Marble Installer Supervisor received report on 51 year old male admitted on 06/17/17 for Oxycodone and Ativan detoxification. Pt has NKA, is a full code and eats a regular diet. Pt reports PMH of anxiety, depression, and ulcerative colitis. Pt currently on a 5 day Ativan and 5 day Subutex taper. Pt encountered in pt room, resting with eyes closed. Respirations even and unlabored. Rise and fall of chest noted. Bed in low position, with wheels locked, side rails up x2 and call light within reach. Will continue to monitor, support and encourage according to plan of care.
--- NOTE | 2017-06-23 07:20 | NUR ---
END OF SHIFT NOTE MONITORED PATIENT THROUGHOUT SHIFT. PATIENT STATES HE FELLS MUCH BETTER NOW THAT THEY EXTENDED HIS TAPER. PATIENT STATES HE WAS HOPING TO FEEL BETTER BEFORE HE GETS DISCHARGE. POSITIVE ENCOURAGEMENT GIVEN . PATIENT ATTENDED GROUPS. DRINKING FLUIDS WELL. APPETITE IS GOOD. PATIENT REFUSED BACLOFEN AND NAPROSYN AT 2100. PATIENT DENIES PAIN DURING SHIFT. PATIENT REQUESTED FOR SLEEP AID AT 0309. PATIENT IS ON FALL PRECAUTION. SAFETY MEASURES IN PLACE. CALL LIGHT IN REACH. WILL CONTINUE TO MONITOR. SLEPT 5 HOURS . FLUID INTAKE 500 ML. VOIDED X 1 . NO BM. LAST COWS 2AND CIWA 1 .
[2017-06-23 08:53] VITALS: BP 106/66
[2017-06-23] MEDS ORDERED: LORAZEPAM 1 MG TABLET PO SCH (09:00)
[2017-06-23] MEDS ORDERED: BUPRENORPHINE HCL 2 MG TAB.SUBL SL SCH (09:00)
[2017-06-23] MEDS: CLONIDINE HCL 0.1 MG TABLET PO SCH ×2 (09:00→15:09)
--- NOTE | 2017-06-23 09:26 | NUR ---
Therapist prompted client about group times. Client stated he would attend groups today.
[2017-06-23] MEDS: LIDOCAINE 5% PATCH TD SCH (09:54)
[2017-06-23] MEDS: BACLOFEN 20 MG TABLET PO SCH ×2 (09:54→15:09)
[2017-06-23] MEDS: NAPROXEN 500 MG TABLET PO SCH (09:54)
[2017-06-23] MEDS: FLUOXETINE HCL 20 MG CAPSULE PO SCH (09:56)
[2017-06-23] MEDS: GABAPENTIN 300 MG CAPSULE PO SCH (09:56)
[2017-06-23] MEDS: MULTIVITAMINS,THERAPEUTIC TABLET PO SCH (09:56)
[2017-06-23] MEDS: PATIENT MAY USE OWN MED- MD OK PO SCH (10:01)
[2017-06-23 12:48] VITALS: BP 122/83
[2017-06-23] MEDS ORDERED: GABAPENTIN 300 MG CAPSULE PO SCH (15:00)
[2017-06-23 15:36] LABS: *AMPHETAMINE, URINE NEGATIVE (NEGATIVE); *BARBITURATE, URINE NEGATIVE (NEGATIVE); *CANNABINOID, URINE NEGATIVE (NEGATIVE); *COCCAINE, URINE NEGATIVE (NEGATIVE); *OPIATE, URINE NEGATIVE (NEGATIVE); *PHENCYCLIDINE SCREEN,URINE NEGATIVE (NEGATIVE)
[2017-06-23 16:50] VITALS: BP 144/96
--- NOTE | 2017-06-23 19:08 | NUR ---
Start of shift note Received report from day shift nurse. Pt is a 51 yo male, A+Ox4, presenting to [facility] for Opiate/Benzo dependence. Pt has Allergies to Alcohol swabs, is on Full Code statsu, and on Regular diet. Pt has HX of Anxiety, Depression, and Ulcerative Colitis. Pt has completed 5 day Ativan and 5 day Subutex tapers, tolerated well. No s/s of distress noted at this time. Respirations even and unlabored. Will continue to monitor. Addendum: 06/23/17 at 2140 by BRIGITTE ALBERTS LVN Incorrect time
--- NOTE | 2017-06-23 19:15 | NUR ---
End of Shift Plastic Surgeon provided report on 51 year old male admitted on 06/17/17 for Oxycodone and Ativan detoxification, with no further comments, questions, or concerns voiced. Pt has NKA, is a full code and eats a regular diet. Pt reports PMH of anxiety, depression, and ulcerative colitis. Pt has completed tapers in preparations for discharge tomorrow. Pt has been calm and cooperative, pleasant and social with peers. Normal affect with congruent mood. Med seeking at times and seems to be trying to sabotage his discharge. Pt wanting to leave AMA, after being assessed and showing no need for Subutex and Ativan , pt stated he would AMA if not provided Subutex or Ativan. provided order for AMA. ANITA Harding, aware of want to AMA and is now primary on this issue. Bed in low position, with wheels locked, side rails up x2 and call light within reach.
--- NOTE | 2017-06-23 19:16 | NUR ---
Start of shift note Received report from day shift nurse. Pt is a 51 yo male, A+Ox4, presenting to [facility] for Opiate/Benzo dependence. Pt has Allergies to Alcohol swabs, is on Full Code statsu, and on Regular diet. Pt has HX of Anxiety, Depression, and Ulcerative Colitis. Pt has completed 5 day Ativan and 5 day Subutex tapers, tolerated well. No s/s of distress noted at this time. Respirations even and unlabored. Will continue to monitor.
--- NOTE | 2017-06-23 20:27 | NUR ---
AMA Note Pt stated that he wanted to leave AMA due to desire for more medication. Pt educated about the risks and consequences of leaving AMA. Pt verbalized understanding but still requested to leave. Multiple staff members spoke with Pt without success. V/S WNL, Pt denies any suicidal/homicidal ideations, skin intact, Dr. Ledesma notified. Pt was given list of community resources in case he is in need of help. All belongings returned to Pt. Pt left the facility on 06-23-17.
== END 2017-06-23 20:27 | disposition left against medical advice (07) | DRG 894 ==
LOC: SRC 06-17 08:22
PROVIDERS: ADMIT Internal Medicine; ATTEND Internal Medicine
PROC: HZ2ZZZZ Detoxification Services for Substance Abuse Treatment (ICD-10-PCS; principal; 2017-06-17)
PROC: HZ31ZZZ Individual Counseling for Substance Abuse Treatment, Behavioral (ICD-10-PCS; 2017-06-20)
PROC: HZ41ZZZ Group Counseling for Substance Abuse Treatment, Behavioral (ICD-10-PCS; 2017-06-21)
DX: F11.23 Opioid dependence with withdrawal (principal); F33.1 Major depressive disorder, recurrent, moderate; I15.9 Secondary hypertension, unspecified; K51.90 Ulcerative colitis, unspecified, without complications; F13.230 Sedative, hypnotic or anxiolytic dependence with withdrawal, uncomplicated; E29.1 Testicular hypofunction; D50.9 Iron deficiency anemia, unspecified; G89.29 Other chronic pain; M54.5 Low back pain; Z90.49 Acquired absence of other specified parts of digestive tract; F41.9 Anxiety disorder, unspecified; Z79.899 Other long term (current) drug therapy; G47.00 Insomnia, unspecified; M50.30 Other cervical disc degeneration, unspecified cervical region; Z87.442 Personal history of urinary calculi; Z82.49 Family history of ischemic heart disease and other diseases of the circulatory system; Z81.8 Family history of other mental and behavioral disorders
CPT/HCPCS: 36415; 70030-TC; 80307; 80361; 83735; 85025; 86580; 86592; 86705; 86803; 87340; 87806; A4663; G0480; J1885; Q0163